=== PATIENT | female | born 1955 | race Caucasian/White ===

== ENCOUNTER 2018-09-10 17:52 | Emergency (ER) | payer BC, OTHER ==
[~2018-09-10] VITALS: Ht 167.6 cm; Wt 60.0 kg
[~2018-09-10 17:52] MED LIST: LEVO75TA84 PO
[2018-09-10 17:59] VITALS: Ht 167.6 cm; Wt 60.0 kg
[2018-09-10] MEDS ORDERED: morphine 4 MG/ML VIAL IV ONE (18:30)
[2018-09-10] MEDS: ONDANSETRON 4 MG INJ IV ONE ×2 (18:30→19:05)
[2018-09-10] MEDS ORDERED: LIDOCAINE 1%/EPI (MDV) 50 ML INJ INJ ONE (19:30)
[2018-09-10] MEDS ORDERED: HYDROCODONE/APAP (5/325) TAB PO ONE (20:30)
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
[2018-09-10 20:57] VITALS: BP 130/81; PULSE 79; RESP 18
== END 2018-09-10 20:58 | disposition home or self-care (01) ==
LOC: E/R 17:52
DX: S01.81XA Laceration without foreign body of other part of head, initial encounter (principal); S51.811A Laceration without foreign body of right forearm, initial encounter; F17.210 Nicotine dependence, cigarettes, uncomplicated; M79.601 Pain in right arm; V49.40XA Driver injured in collision with unspecified motor vehicles in traffic accident, initial encounter
CPT/HCPCS: 12011; 36415; 70450; 72125; 80048; 80307; 85025; 85610; 85730; 96374; 99285; J2405; J2270

== ENCOUNTER 2018-09-16 16:42 | Emergency (ER) | payer BC ==
[~2018-09-16] VITALS: Wt 60.0 kg
[2018-09-16 16:44] VITALS: BP 139/78; PULSE 89; RESP 18
--- NOTE | 2018-09-16 16:55 | ERD ---
ER Documentation Chief Complaint Chief Complaint SCALP MISTY REMOVAL HPI 63-year-old female is here for removal of sutures from her scalp that were placed 5 days ago. She has no other complaint. She is also requesting a medication refill for her Synthroid. ROS All systems reviewed and are negative except as per history of present illness. Medications Home Meds Active Scripts Levothyroxine Sodium* (Synthroid*) 75 Mcg Tablet, 75 MCG PO BEFORE BREAKFAST, #30 TAB Prov:LULI CARO PA-C 09/16/18 Allergies Allergies: Coded Allergies: No Known Allergy (Unverified , 09/10/18) PMhx/Soc Hx Miscellaneous Medical Probl: Yes (LUPUS) Hx Alcohol Use: No Hx Substance Use: No Hx Tobacco Use: No FmHx Family History: No diabetes Physical Exam Vitals Vital Signs Date Temp Pulse Resp B/P (MAP) Pulse Ox O2 O2 Flow FiO2 Time Delivery Rate 09/16/18 98.2 89 18 139/78 99 16:44 (98) Physical Exam Const: No acute distress Head: Atraumatic Eyes: Normal Conjunctiva ENT: Normal External Ears, Nose and Mouth. Neck: Full range of motion. No meningismus. Resp: Clear to auscultation bilaterally Cardio: Regular rate and rhythm, no murmurs Skin: Healing scalp laceration on right parietal scalp with [address], no surrounding erythema or edema, no bleeding or drainage Procedures/MDM Suture Removal by me: Sutures removed with tweezers and scissors without incident. Wound shows no evidence of infection, foreign body, neurologic injury, vascular injury, open joint or tendon laceration. Patient to follow up PRN. Rx for Synthroid given. Patient counseled regarding my diagnostic impression and care plan. Prior to discharge all questions answered. Pt agrees with treatment plan and understands strict return precautions. Pt is instructed to follow up with primary care provider within 24-48 hours. Precautionary instructions provided including instructions to return to the ER if not improving or for any worsening or changing symptoms or concerns. Departure Diagnosis: Primary Impression: Visit for suture removal Condition: Stable Patient Instructions: Suture Removal, No Complication Additional Instructions: Call your primary care doctor TOMORROW for an appointment during the next 1-2 days.See the doctor sooner or return here if your condition worsens before your appointment time. LULI CARO PA-C Sep 16, 2018 16:55
== END 2018-09-16 16:54 | disposition home or self-care (01) ==
LOC: E/R 16:42
DX: Z48.02 Encounter for removal of sutures (principal)
CPT/HCPCS: 99281